=== PATIENT | male | born 1945 | race Caucasian/White ===

== ENCOUNTER 2016-12-27 17:38 | Emergency (ER) | payer OTHER ==
[~2016-12-27] VITALS: Ht 188 cm; Wt 70.3 kg
[~2016-12-27 17:38] MED LIST: /VERA40TA OR; AMBI10TA OR; AMBI5TAB OR; DOXE10CA2 OR; DOXE50CA2 PO; MAPROTILINE; VALI10TA OR; VICO5TAB PO; ZETI10TA OR; ZOCO40TA OR; [UNRECOGNIZED DRUG - OTHER]
[2016-12-27] MEDS ORDERED: INCR1INH INH (18:01)
[2016-12-27] MEDS ORDERED: VERA100C PO (18:01)
[2016-12-27 20:02] LABS: BASO % 0.3 % (0.0-1.0); EOS # 0.2 K/mm3 (0.0-0.50); EOS % 2.5 % (0.0-3.0); LARGE UNSTAINED CELL # 0.1 K/mm3 (0.0-0.4); LARGE UNSTAINED CELL % 1.9 % (0.0-4.0); LYMPH # 2.1 K/mm3 (1.5-4.5); LYMPH % 26.6 % (24.0-44.0); MEAN CORPUSCULAR HGB CONC 34.7 g/dl (32.0-36.5); MEAN CORPUSCULAR VOLUME 92.3 fl (80.0-96.0); MONO # 0.4 K/mm3 (0.0-0.8); NEUTROPHILS # 4.5 K/mm3 (1.8-7.7); NEUTROPHILS % 62.6 % (36.0-66.0); PLATELET COUNT, AUTOMATED 240 k/mm3 (150-450); RED CELL DISTRIBUTION WIDTH 12.9 % (11.5-14.5); WHITE BLOOD COUNT 7.2 K/mm3 (4.0-10.0)
[2016-12-27 20:09] LABS: ANION GAP 5 MEQ/L (8-16); BLOOD UREA NITROGEN 26 MG/DL (7-18); CALCIUM LEVEL 8.2 MG/DL (8.8-10.2); CARBON DIOXIDE LEVEL 27 MEQ/L (21-32); CHLORIDE LEVEL 103 MEQ/L (98-107); CREATININE FOR GFR 1.22 MG/DL (0.70-1.30); GLOMERULAR FILTRATION RATE > 60.0 (>42); GLUCOSE, FASTING 108 MG/DL (83-110); POTASSIUM SERUM 4.7 MEQ/L (3.5-5.1); SODIUM LEVEL 135 MEQ/L (136-145)
[2016-12-27 20:12] LABS: INR 1.11
[2016-12-27] MEDS: MORPHINE 4 MG/ML 1ML SYRINGE IV PRN ×2 (20:38→21:20)
[2016-12-27] MEDS ORDERED: ONDANSETRON 4MG/2ML VIAL (J2405) IV ONE (20:45)
[2016-12-27] MEDS ORDERED: ISOVUE-370 76% 100ML VIAL (Q9967) As Ordered ONE (20:45)
[2016-12-27 22:41] VITALS: BP 166/80
--- NOTE | 2016-12-28 14:45 | REP ---
Clinical: Abdominal pain rule out aortic aneurysm. Technique: Axial contrast enhanced images from the lung bases to the pubic symphysis using angiographic technique with 100 ml Isovue 370 intravenous contrast material. Coronal and sagittal re-formations obtained. Findings: Satisfactory enhancement of the aorta and branch vessels noted. Advanced atherosclerotic changes including partially calcified atheromatous plaques are identified involving the aorta. There is no evidence for acute aneurysm or dissection. Satisfactory enhancement of the celiac access, superior mesenteric artery, bilateral renal arteries and bilateral common/external iliac arteries appreciated. There appears to be an old nonenhancing aorto-biiliac stent graft. Liver, spleen, pancreas, gallbladder, bilateral adrenal glands and kidneys are relatively normal. The enteric system is without obstruction or acute inflammatory process. The bladder is unremarkable. The prostate gland is enlarged measuring greater than 5.2 cm maximal diameter. No ascites. No free air. No intraperitoneal or retroperitoneal adenopathy. Musculoskeletal structures demonstrate degenerative changes without focal osseous abnormality. Impression: 1. Advanced atherosclerotic changes. No evidence for abdominal aortic aneurysm or dissection. Prior aortic-biiliac stent graft without enhancement or obvious flow. 2. Enlarged prostate gland. 3. Chronic age-related changes. 4. No acute intra-abdominal or pelvic pathology appreciated. Signed by Nabeel Kenny MD 12/28/2016 02:36 P
== END 2016-12-27 22:56 | disposition home or self-care (01) ==
LOC: M ED 18:57
DX: G89.29 Other chronic pain (principal); M54.5 Low back pain; Z79.899 Other long term (current) drug therapy
CPT/HCPCS: 36415; 74177; 80048; 85025; 85610; 85730; 96374; 96375; 99283; J2405; Q9967

== ENCOUNTER → 2017-01-10 | Outpatient (REF) | payer OTHER ==
[~2017-01-10] MED LIST changes: +INCR1INH INH; +VERA100C PO
[2017-01-11 11:45] LABS: MEAN CORPUSCULAR HEMOGLOBIN 30.8 pg (27.0-33.0); MEAN CORPUSCULAR HGB CONC 32.8 g/dl (32.0-36.5); MEAN CORPUSCULAR VOLUME 93.9 fl (80.0-96.0); WHITE BLOOD COUNT 9.4 K/mm3 (4.0-10.0)
[2017-01-11 12:08] LABS: ALBUMIN 3.9 GM/DL (3.2-5.2); ALBUMIN/GLOBULIN RATIO 0.91 (1.00-1.93); ALKALINE PHOSPHATASE 113 U/L (45-117); ALT/SGPT 16 U/L (12-78); ANION GAP 5 MEQ/L (8-16); AST/SGOT 15 U/L (15-37); BILIRUBIN,TOTAL 0.3 MG/DL (0.2-1.0); BLOOD UREA NITROGEN 23 MG/DL (7-18); CALCIUM LEVEL 8.5 MG/DL (8.8-10.2); CARBON DIOXIDE LEVEL 29 MEQ/L (21-32); CHLORIDE LEVEL 103 MEQ/L (98-107); CHOLESTEROL LEVEL 114 MG/DL (<200); CREATININE FOR GFR 1.09 MG/DL (0.70-1.30); GLOMERULAR FILTRATION RATE > 60.0 (>42); GLUCOSE, FASTING 97 MG/DL (83-110); POTASSIUM SERUM 4.8 MEQ/L (3.5-5.1); SODIUM LEVEL 137 MEQ/L (136-145); TOTAL PROTEIN 8.2 GM/DL (6.4-8.2); TRIGLYCERIDES LEVEL 165 MG/DL (<150)
== END ==
LOC: M SFHCCLAY 15:30
PROVIDERS: ATTEND Nurse Practitioner
DX: Z12.5 Encounter for screening for malignant neoplasm of prostate (principal); R63.4 Abnormal weight loss; I10 Essential (primary) hypertension; E78.5 Hyperlipidemia, unspecified; Z79.899 Other long term (current) drug therapy; Z79.891 Long term (current) use of opiate analgesic
CPT/HCPCS: 80053; 80061; 82306; 85027; 85652; G0103; G0463

== ENCOUNTER → 2017-01-19 | Outpatient (CLI) | payer OTHER ==
[2017-01-19 12:40] LABS: FREE T4 1.03 NG/DL (0.76-1.46); TOTAL IRON BINDING CAPACITY 322 UG/DL (250-450); TOTAL PROTEIN 7.6 GM/DL (6.4-8.2)
[2017-01-19 12:51] LABS: VITAMIN B12 LEVEL 389 PG/ML
[2017-01-19 12:52] LABS: FOLATE 20.3 NG/ML
[2017-01-20 13:52] LABS: ALBUMIN 3.91 GM/DL (3.29-5.55); ALBUMIN % 51.5 % (55.8-66.1)
== END ==
LOC: M LAB 11:29
PROVIDERS: ATTEND Nurse Practitioner
DX: D64.9 Anemia, unspecified (principal)

== ENCOUNTER 2017-02-07 15:47 | Emergency (ER) | payer MEDICARE, OTHER ==
[~2017-02-07] VITALS: Ht 185.4 cm; Wt 63.5 kg
[2017-02-07] MEDS ORDERED: DOXE75CA2 (16:25)
[2017-02-07] MEDS ORDERED: METO-209 (16:25)
[2017-02-07] MEDS ORDERED: ANORO (16:25)
[2017-02-07] MEDS ORDERED: GABA-282 (16:25)
[2017-02-07] MEDS ORDERED: HYDR-3713 PO (16:25)
[2017-02-07] MEDS ORDERED: METO-207 (16:25)
[2017-02-07] MEDS ORDERED: VERA1TAB11 (16:25)
[2017-02-07] MEDS ORDERED: CYCL10TA (16:25)
[2017-02-07 18:31] LABS: MEAN CORPUSCULAR HEMOGLOBIN 31.3 pg (27.0-33.0); MEAN CORPUSCULAR HGB CONC 33.5 g/dl (32.0-36.5); MEAN CORPUSCULAR VOLUME 93.2 fl (80.0-96.0); RED CELL DISTRIBUTION WIDTH 13.5 % (11.5-14.5); WHITE BLOOD COUNT 7.9 K/mm3 (4.0-10.0)
[2017-02-07 19:00] LABS: ALBUMIN 3.8 GM/DL (3.2-5.2); ALBUMIN/GLOBULIN RATIO 0.93 (1.00-1.93); ALKALINE PHOSPHATASE 90 U/L (45-117); ALT/SGPT 22 U/L (12-78); ANION GAP 6 MEQ/L (8-16); AST/SGOT 21 U/L (15-37); BILIRUBIN,DIRECT 0.1 MG/DL (0.0-0.2); BILIRUBIN,TOTAL 0.4 MG/DL (0.2-1.0); BLOOD UREA NITROGEN 21 MG/DL (7-18); CALCIUM LEVEL 8.6 MG/DL (8.8-10.2); CARBON DIOXIDE LEVEL 27 MEQ/L (21-32); CHLORIDE LEVEL 105 MEQ/L (98-107); CREATININE FOR GFR 1.25 MG/DL (0.70-1.30); GLOMERULAR FILTRATION RATE > 60.0 (>42); GLUCOSE, FASTING 83 MG/DL (83-110); SODIUM LEVEL 138 MEQ/L (136-145); TOTAL PROTEIN 7.9 GM/DL (6.4-8.2)
[2017-02-07 20:10] LABS: BASO % 0.3 % (0.0-1.0); EOS # 0.2 K/mm3 (0.0-0.50); EOS % 3.1 % (0.0-3.0); LARGE UNSTAINED CELL # 0.1 K/mm3 (0.0-0.4); LARGE UNSTAINED CELL % 1.2 % (0.0-4.0); LYMPH # 2.3 K/mm3 (1.5-4.5); LYMPH % 32.5 % (24.0-44.0); MEAN CORPUSCULAR HEMOGLOBIN 31.3 pg (27.0-33.0); MEAN CORPUSCULAR HGB CONC 33.7 g/dl (32.0-36.5); MONO # 0.4 K/mm3 (0.0-0.8); MONO % 6.4 % (0.0-5.0); NEUTROPHILS # 3.9 K/mm3 (1.8-7.7); NEUTROPHILS % 56.6 % (36.0-66.0); PLATELET COUNT, AUTOMATED 259 k/mm3 (150-450); RED CELL DISTRIBUTION WIDTH 13.6 % (11.5-14.5); WHITE BLOOD COUNT 6.9 K/mm3 (4.0-10.0)
[2017-02-07 20:13] LABS: INR 0.94
[2017-02-07 20:46] LABS: ALBUMIN 3.8 GM/DL (3.2-5.2); ALKALINE PHOSPHATASE 100 U/L (45-117); ALT/SGPT 20 U/L (12-78); ANION GAP 7 MEQ/L (8-16); AST/SGOT 22 U/L (15-37); BILIRUBIN,DIRECT < 0.1 MG/DL (0.0-0.2); BILIRUBIN,TOTAL 0.4 MG/DL (0.2-1.0); BLOOD UREA NITROGEN 20 MG/DL (7-18); CALCIUM LEVEL 8.9 MG/DL (8.8-10.2); CARBON DIOXIDE LEVEL 27 MEQ/L (21-32); CHLORIDE LEVEL 105 MEQ/L (98-107); CREATININE FOR GFR 1.34 MG/DL (0.70-1.30); GLOMERULAR FILTRATION RATE 56.1 (>42); GLUCOSE, FASTING 139 MG/DL (83-110); SODIUM LEVEL 139 MEQ/L (136-145)
[2017-02-07] MEDS ORDERED: NS 1,000 ML IV ONE (21:00)
[2017-02-07 22:51] LABS: METHADONE URINE NEGATIVE (NEGATIVE)
[2017-02-07 23:18] VITALS: BP 197/93
--- NOTE | 2017-02-08 08:28 | ECGEPIP ---
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 RBBB Electronically Signed On 02-08-2017 8:27:53 EDT by Richard Pichardo
== END 2017-02-07 23:29 | disposition home or self-care (01) ==
LOC: M ED 17:48
DX: F11.20 Opioid dependence, uncomplicated (principal); M54.9 Dorsalgia, unspecified; G89.29 Other chronic pain; D64.9 Anemia, unspecified
CPT/HCPCS: 80048; 80076; 80306; 82550; 84443; 85025; 85027; 85610; 85730; 93005; 93041; 94760; 99285; G0480

== ENCOUNTER 2017-02-18 01:18 | Inpatient (IN) | payer OTHER ==
[~2017-02-18] VITALS: Ht 185.4 cm; Wt 64.3 kg
[~2017-02-18 01:18] MED LIST changes: +ANORO; +CYCL10TA PO; +DOXE75CA2 PO; +GABA-282 PO; +HYDR-3713 PO; +METO-207; +METO-209 PO; +VERA1TAB11 PO
[2017-02-18] MEDS ORDERED: dexameTHASONE 20 MG/5 ML VIAL (J1100) IV ONE (02:45)
[2017-02-18 03:06] LABS: BASO % 0.2 % (0.0-1.0); EOS # 0.1 K/mm3 (0.0-0.50); EOS % 1.6 % (0.0-3.0); LARGE UNSTAINED CELL # 0.2 K/mm3 (0.0-0.4); LARGE UNSTAINED CELL % 2.1 % (0.0-4.0); LYMPH # 2.9 K/mm3 (1.5-4.5); MEAN CORPUSCULAR HEMOGLOBIN 31.4 pg (27.0-33.0); MEAN CORPUSCULAR HGB CONC 34.1 g/dl (32.0-36.5); MEAN CORPUSCULAR VOLUME 92.1 fl (80.0-96.0); MONO # 0.8 K/mm3 (0.0-0.8); MONO % 9.1 % (0.0-5.0); NEUTROPHILS # 4.7 K/mm3 (1.8-7.7); NEUTROPHILS % 55.1 % (36.0-66.0); PLATELET COUNT, AUTOMATED 241 k/mm3 (150-450); RED CELL DISTRIBUTION WIDTH 13.5 % (11.5-14.5); WHITE BLOOD COUNT 8.4 K/mm3 (4.0-10.0)
[2017-02-18] MEDS ORDERED: MORPHINE 4 MG/ML 1ML SYRINGE IV ONE (03:15)
[2017-02-18] MEDS ORDERED: IPRATROPIUM 0.5MG/ALBUTEROL 2.5MG INH SOL UD 3ML (DUONEB)(J7620) NEB PRN (03:30)
[2017-02-18] MEDS ORDERED: dexameTHASONE 20 MG/5 ML VIAL (J1100) IV SCH (03:30)
[2017-02-18] MEDS ORDERED: NS 1,000 ML IV SCH (03:30)
[2017-02-18] MEDS ORDERED: ISOVUE-370 76% 100ML VIAL (Q9967) As Ordered ONE (03:33)
[2017-02-18 03:35] LABS: ANION GAP 4 MEQ/L (8-16); BLOOD UREA NITROGEN 24 MG/DL (7-18); CALCIUM LEVEL 8.6 MG/DL (8.8-10.2); CARBON DIOXIDE LEVEL 32 MEQ/L (21-32); CHLORIDE LEVEL 99 MEQ/L (98-107); CREATININE FOR GFR 1.08 MG/DL (0.70-1.30); GLOMERULAR FILTRATION RATE > 60.0 (>42); GLUCOSE, FASTING 98 MG/DL (83-110); POTASSIUM SERUM 3.7 MEQ/L (3.5-5.1); SODIUM LEVEL 135 MEQ/L (136-145)
[2017-02-18] MEDS ORDERED: ALBU83IN INH (03:55)
[2017-02-18] MEDS ORDERED: ZOCO40TA PO (03:55)
[2017-02-18] MEDS ORDERED: ANOR1AER INH (03:55)
[2017-02-18] MEDS ORDERED: hydrALAZINE INJ 20 MG/ML VIAL IV SCH (04:00)
[2017-02-18 04:55] VITALS: BP 195/95
[2017-02-18 06:47] VITALS: BP 173/87
[2017-02-18 07:45] VITALS: BP 175/81
[2017-02-18] MEDS: TAMSULOSIN 0.4 MG CAP PO SCH ×2 (09:30→21:03)
[2017-02-18] MEDS: SENOKOT S TAB PO SCH (09:30)
[2017-02-18] MEDS: GABAPENTIN 300 MG CAP PO SCH ×3 (09:30→21:04)
[2017-02-18] MEDS: CYCLOBENZAPRINE 10 MG TAB PO SCH ×3 (09:30→21:04)
[2017-02-18] MEDS: HEPARIN SOD (PORCINE) 5000 UNITS/ML VIAL SQ SCH ×2 (09:32→21:02)
[2017-02-18] MEDS: hydrALAZINE INJ 20 MG/ML VIAL IV SCH ×3 (10:00→23:14)
[2017-02-18 12:00] VITALS: BP 168/72
[2017-02-18] MEDS: dexameTHASONE 4 MG/ML 1ML VIAL (J1100) IV SCH ×2 (13:52→21:02)
[2017-02-18 15:23] VITALS: BP 160/78
[2017-02-18 15:49] LABS: CARCINOEMBRYONIC ANTIGEN 1.8 NG/ML (<2.5)
[2017-02-18] MEDS: LORazepam 0.5 MG TAB PO PRN ×2 (17:00→23:12)
[2017-02-18] MEDS: FINASTERIDE 5 MG TAB PO SCH (18:51)
[2017-02-18 20:00] VITALS: BP 136/78
[2017-02-18] MEDS: METOPROLOL SUCC (TopROL XL) 100MG *XL* TAB PO SCH (21:03)
[2017-02-18] MEDS: VERAPAMIL 180 MG SR TAB PO SCH (21:03)
[2017-02-18] MEDS: DOXEPIN 25 MG CAP PO SCH (21:03)
[2017-02-18] MEDS: SIMVASTATIN 40 MG TAB PO SCH (21:04)
[2017-02-18] MEDS: levETIRAcetam 250MG TABLET (KEPPRA) PO SCH (21:04)
[2017-02-19] VITALS (8 sets, daily range): BP systolic 133–154; BP diastolic 63–78
[2017-02-19] MEDS: NORCO, ANEXSIA 5/325MG TABLET (HYDROcodone/ACETAMINOPHEN) PO PRN ×3 (00:23→20:52)
[2017-02-19] MEDS: hydrALAZINE INJ 20 MG/ML VIAL IV SCH ×2 (04:00→09:57)
[2017-02-19] MEDS: dexameTHASONE 4 MG/ML 1ML VIAL (J1100) IV SCH ×4 (04:02→20:45)
[2017-02-19 05:30] LABS: MEAN CORPUSCULAR HEMOGLOBIN 30.8 pg (27.0-33.0); MEAN CORPUSCULAR HGB CONC 33.3 g/dl (32.0-36.5); MEAN CORPUSCULAR VOLUME 92.3 fl (80.0-96.0); RED CELL DISTRIBUTION WIDTH 13.5 % (11.5-14.5); WHITE BLOOD COUNT 12.4 K/mm3 (4.0-10.0)
[2017-02-19 05:43] LABS: ANION GAP 7 MEQ/L (8-16); BLOOD UREA NITROGEN 27 MG/DL (7-18); CALCIUM LEVEL 9.2 MG/DL (8.8-10.2); CARBON DIOXIDE LEVEL 29 MEQ/L (21-32); CHLORIDE LEVEL 101 MEQ/L (98-107); CREATININE FOR GFR 1.03 MG/DL (0.70-1.30); GLOMERULAR FILTRATION RATE > 60.0 (>42); GLUCOSE, FASTING 136 MG/DL (83-110); MAGNESIUM LEVEL 2.2 MG/DL (1.8-2.4); POTASSIUM SERUM 4.2 MEQ/L (3.5-5.1); SODIUM LEVEL 137 MEQ/L (136-145)
[2017-02-19] MEDS: LORazepam 0.5 MG TAB PO PRN ×3 (07:14→20:51)
[2017-02-19] MEDS: FINASTERIDE 5 MG TAB PO SCH (09:56)
[2017-02-19] MEDS: levETIRAcetam 250MG TABLET (KEPPRA) PO SCH ×2 (09:56→20:45)
[2017-02-19] MEDS: CYCLOBENZAPRINE 10 MG TAB PO SCH ×3 (09:56→20:44)
[2017-02-19] MEDS: HEPARIN SOD (PORCINE) 5000 UNITS/ML VIAL SQ SCH ×2 (09:57→20:45)
[2017-02-19] MEDS: GABAPENTIN 300 MG CAP PO SCH ×3 (09:57→20:44)
[2017-02-19] MEDS: SENOKOT S TAB PO SCH (09:57)
[2017-02-19] MEDS: TAMSULOSIN 0.4 MG CAP PO SCH ×2 (09:57→20:45)
[2017-02-19] MEDS ORDERED: ISOVUE-370 76% 100ML VIAL (Q9967) As Ordered ONE (15:12)
[2017-02-19] MEDS: VERAPAMIL 180 MG SR TAB PO SCH (20:44)
[2017-02-19] MEDS: DOXEPIN 25 MG CAP PO SCH (20:44)
[2017-02-19] MEDS: METOPROLOL SUCC (TopROL XL) 100MG *XL* TAB PO SCH (20:45)
[2017-02-19] MEDS: SIMVASTATIN 40 MG TAB PO SCH (20:45)
[2017-02-20 02:00] VITALS: BP 141/70
[2017-02-20] MEDS: dexameTHASONE 4 MG/ML 1ML VIAL (J1100) IV SCH ×2 (02:25→08:13)
[2017-02-20 06:00] VITALS: BP 145/69
[2017-02-20 06:02] LABS: MEAN CORPUSCULAR HEMOGLOBIN 31.4 pg (27.0-33.0); MEAN CORPUSCULAR VOLUME 92.3 fl (80.0-96.0); RED CELL DISTRIBUTION WIDTH 13.7 % (11.5-14.5); WHITE BLOOD COUNT 15.8 K/mm3 (4.0-10.0)
[2017-02-20 06:32] LABS: ANION GAP 7 MEQ/L (8-16); BLOOD UREA NITROGEN 28 MG/DL (7-18); CALCIUM LEVEL 8.4 MG/DL (8.8-10.2); CARBON DIOXIDE LEVEL 27 MEQ/L (21-32); CHLORIDE LEVEL 103 MEQ/L (98-107); GLOMERULAR FILTRATION RATE > 60.0 (>42); GLUCOSE, FASTING 129 MG/DL (83-110); MAGNESIUM LEVEL 2.1 MG/DL (1.8-2.4); POTASSIUM SERUM 4.2 MEQ/L (3.5-5.1); SODIUM LEVEL 137 MEQ/L (136-145)
[2017-02-20] MEDS: LORazepam 0.5 MG TAB PO PRN ×2 (06:40→12:59)
[2017-02-20] MEDS: NORCO, ANEXSIA 5/325MG TABLET (HYDROcodone/ACETAMINOPHEN) PO PRN ×2 (06:41→13:00)
[2017-02-20] MEDS: SENOKOT S TAB PO SCH (08:12)
[2017-02-20] MEDS: levETIRAcetam 250MG TABLET (KEPPRA) PO SCH (08:12)
[2017-02-20] MEDS: FINASTERIDE 5 MG TAB PO SCH (08:12)
[2017-02-20] MEDS: HEPARIN SOD (PORCINE) 5000 UNITS/ML VIAL SQ SCH (08:13)
[2017-02-20] MEDS: CYCLOBENZAPRINE 10 MG TAB PO SCH (08:13)
[2017-02-20] MEDS: TAMSULOSIN 0.4 MG CAP PO SCH (08:13)
[2017-02-20] MEDS: GABAPENTIN 300 MG CAP PO SCH (08:13)
[2017-02-20 10:00] VITALS: BP 141/66
[2017-02-20] MEDS ORDERED: ATIV1TAB10 PO (12:25)
[2017-02-20] MEDS ORDERED: DEXA4TA PO (12:25)
[2017-02-20] MEDS ORDERED: FINA5TAB2 PO (12:25)
[2017-02-20] MEDS ORDERED: KEPP250T5 PO (12:25)
[2017-02-20] MEDS ORDERED: NORCOTAB PO (12:25)
[2017-02-20] MEDS ORDERED: FLOM5CAP PO (12:25)
== END 2017-02-20 13:12 | disposition home or self-care (01) | DRG 54 ==
LOC: M ED 03:04 → M ED INP 03:20 → M PCU 05:06 → M MSPAV 02-19 12:14
PROVIDERS: ADMIT Hospitalist; ATTEND Family Medicine
DX: C79.31 Secondary malignant neoplasm of brain (principal); G93.6 Cerebral edema; G81.94 Hemiplegia, unspecified affecting left nondominant side; R91.8 Other nonspecific abnormal finding of lung field; F11.10 Opioid abuse, uncomplicated; Z66 Do not resuscitate; I16.0 Hypertensive urgency; R56.9 Unspecified convulsions; R59.0 Localized enlarged lymph nodes; K59.09 Other constipation; M47.817 Spondylosis without myelopathy or radiculopathy, lumbosacral region; C80.1 Malignant (primary) neoplasm, unspecified; F17.210 Nicotine dependence, cigarettes, uncomplicated; E78.5 Hyperlipidemia, unspecified; G62.9 Polyneuropathy, unspecified; N40.1 Benign prostatic hyperplasia with lower urinary tract symptoms; I10 Essential (primary) hypertension; J43.9 Emphysema, unspecified; Z79.899 Other long term (current) drug therapy

== ENCOUNTER 2017-03-16 17:18 | Inpatient (IN) | payer OTHER, MEDICARE ==
[~2017-03-16] VITALS: Ht 188 cm; Wt 62.0 kg
[~2017-03-16 17:18] MED LIST changes: +ALBU83IN INH; +ANOR1AER INH; +ATIV1TAB10 PO; +DEXA4TA PO; +FINA5TAB2 PO; +FLOM5CAP PO; +KEPP250T5 PO; -METO-207; -METO-209 PO; +METO1TAB33 PO; +METO1TAB7; +NORCOTAB PO; +ZOCO40TA PO
[2017-03-16] MEDS ORDERED: MORPHINE 4 MG/ML 1ML SYRINGE IV ONE (19:15)
[2017-03-16] MEDS ORDERED: AMBI10TA PO (20:04)
[2017-03-16] MEDS ORDERED: NORC1TAB4 PO (20:05)
[2017-03-16] MEDS ORDERED: BISACODYL 10 MG SUPP PR PRN (20:45)
[2017-03-16] MEDS ORDERED: LORazepam 2 MG/ML VIAL (J2060) IV PRN (20:45)
[2017-03-16] MEDS ORDERED: MORPHINE 10MG/0.5ML ORAL CONCENTRATE SOLUTION U/D SL PRN (20:45)
[2017-03-16] MEDS ORDERED: ONDANSETRON 4MG/2ML VIAL (J2405) IV PRN (20:45)
[2017-03-16] MEDS ORDERED: IPRATROPIUM 0.5MG/ALBUTEROL 2.5MG INH SOL UD 3ML (DUONEB)(J7620) NEB PRN (21:00)
[2017-03-16] MEDS ORDERED: ALBU17IN INH (21:25)
[2017-03-16] MEDS ORDERED: NYST50SS SS (21:25)
[2017-03-16] MEDS ORDERED: CLOT10TR MT (21:25)
[2017-03-16] MEDS ORDERED: DEXA4TA PO (21:25)
[2017-03-16] MEDS ORDERED: KEPP1TAB PO (21:25)
[2017-03-16] MEDS ORDERED: LORA1TAB12 PO (21:25)
--- NOTE | 2017-03-16 21:57 | HPE ---
DATE OF ADMISSION: 03/16/2017 PRIMARY CARE PHYSICIAN: Dr. Mayes SHARED SERVICES MANAGER: Dr. Briones CHIEF COMPLAINT: Pain, weakness, dyspnea. HISTORY OF PRESENT ILLNESS: Mr. Lai is a 71-year-old with multiple past medical history, including small lung nodules, right upper lobe, as well as brain metastasis of uncertain primary source who was brought to the emergency room (ER ) due to experiencing 2 days of shortness of breath, pain all over his body, especially abdomen, as well as weakness and loss of appetite. According to the patient's daughter, who is also his healthcare proxy. Patient was at baseline up to 2 days ago, when patient started to have decreased food intake as well as becoming more tired and fatigued with dyspnea. Today patient became worse. It was also noted that patient became more dizzy and lightheaded. According to the patient's daughter, he had episodes of vomiting yesterday and today. Patient also felt cold as well as chills and night sweats. According to the daughter, patient only drank a small amount of water. Patient also urinating very often (every hour), which daughter requesting patient to have Bajwa. Patient expressed that before coming to the hospital he had pain 8 or 9 out of 10; however, after receiving 4 mg of morphine, patient's pain decreased to 10/10. Patient expressed that the pain is all over his body, especially his abdomen. ALLERGIES: No known allergies. PAST MEDICAL HISTORY: 1. Brain metastasis of uncertain primary source. 2. Small lung nodules, right upper lobe. 3. Mediastinal adenopathy. 4. Seizure. 5. Left hemiparesis. 6. Hypertensive urgency. 7. Tobacco abuse. 8. History of chronic back pain due to lumbosacral spondylosis. 9. Chronic constipation. 10. Chronic obstructive pulmonary disease (COPD). 11. Hyperlipidemia. 12. Peripheral neuropathy. 13. Straining with urination. PAST SURGICAL HISTORY: 1. Aortic graft for abdominal aortic aneurysm. 2. Inguinal hernia repair. HOME MEDICATIONS: - [place] 5/325 one tablet by mouth as needed pain - albuterol sulfate 2.5 mg INH three times a day as needed shortness of breath - Anoro Ellipta one inhaler daily - cyclobenzaprine 10 mg by mouth three times a day - doxepin 75 mg by mouth at bedtime - gabapentin 300 mg by mouth three times a day - metoprolol succinate 100 mg by mouth at bedtime - verapamil 180 mg by mouth at bedtime - Ambien 10 mg by mouth at bedtime as needed sleep SOCIAL HISTORY: Patient lives with his . Patient's son has moved in to live with them for the past month to help him. Patient's daughter also visiting him. Patient has one dog. Patient is not drinking alcohol at this time; however, patient used to drink alcohol a long time ago. Patient smokes about one and one-half to two packs a day since age 19. Patient still smokes. Patient denies illicit drug use. Patient has not traveled outside of the [place]. FAMILY HISTORY: Patient has one daughter and three sons who are healthy for their age. Patient has two sisters who are healthy. Patient's mother has different medical issues; however, no information is provided at this time. Patient's father due to ruptured aorta at age 68. REVIEW OF SYSTEMS: GENERAL: Patient denied fever; however, patient has chills and night sweats. Patient has lost about 7 pounds for the past week. HEENT: Patient also expressed that he has some acute vision changes that become more blurry; however, patient denies acute hearing changes. Patient denies problem with chewing food or sinusitis. Patient has dizziness, and meclizine seems to help. NECK: Patient denies lumps, bumps; however, patient expressed that moving the neck makes him to be out of breath. HEART: Patient denies chest pain, palpitations, racing or skipping heartbeat. LUNGS: Patient expressed that he has been having shortness of breath that has increased for the past 2 days. Patient denies wheezing. ABDOMEN: Patient has abdominal pain; however, his last bowel movement was 2 days ago, which was soft. Patient denies hematochezia, hemoptysis. Patient has nausea and has vomiting; however, no blood was seen in the stool or in the vomit. NEUROLOGIC: Patient denies history of transient ischemic attack (TIA), severe seizure-type activities. PHYSICAL EXAMINATION: VITAL SIGNS: Temperature 98.3, pulse 112, respiratory rate 24, blood pressure 130/80, pulse oximetry 90 on 4 liters nasal cannula. HEENT: Normocephalic, atraumatic. Pupils are reactive to light; however, right eye has ptosis. Oral mucosa is moist. GENERAL APPEARANCE: cachexia. NECK: Soft, supple. No thyromegaly. HEART: Tachycardia. LUNGS: Patient has decreased breath sounds at the base of the lungs. Patient also has rhonchi and exhale wheezing. ABDOMEN: Soft. Tender to palpation; however, patient has positive bowel sounds in all quadrants. EXTREMITIES: Patient has cyanosis on his feet bilaterally. The range of motion cannot be examined due to patient being out of breath and not being able to move his extremities; however, sensation has decreased on his lower extremities. NEUROLOGIC: Cranial nerves cannot be obtained due to patient being sleepy. LABORATORY DATA: No lab was performed. IMAGING: No imaging was performed. ASSESSMENT AND PLAN: At this time, patient and the patient's family decided to be comfort measures only, and comfort measures only status was explained in detail to the patient and patient's family and patient's health proxy, and they all agreed. A medical order for life-sustaining treatment (MOLST) form was signed, and patient's status was changed comfort measures only. Also we have put a Bajwa, as patient's healthcare proxy requested. Also we have put a consult for hospice for tomorrow. At this time we will continue patient with comfort measures only protocol. patient has sever protein calorie malnutrition in the setting of cancer with BMI 17 and cachexia. My preceptor for this patient encounter was Dr. Erna Dillon. The preceptor was physically present in the building during the encounter and was fully available as needed. All aspects of the patient interview, examination, medical decision making process, and medical care plan development were reviewed and approved by the preceptor. The preceptor is aware and concurs with the plan as stated in the body of this note and will attest to such by his/her co-signature. I have both independently examined this patient as well as reviewed the H&P. I have discussed in detail with the resident the findings and plan of treatment as documented in the residents note. I will continue to follow the patient and offer further guidance to the patients care as necessary during this hospital stay. Erna SHARP
[2017-03-16 23:03] VITALS: BP 108/62
[2017-03-16] MEDS: MORPHINE 2 MG/ML 1ML SYRINGE IV PRN (23:59)
[2017-03-17] MEDS ORDERED: MECLIZINE 25 MG TABLET PO PRN (00:15)
[2017-03-17] MEDS ORDERED: ACETAMINOPHEN 500 MG TAB PO PRN (00:15)
[2017-03-17] MEDS: MORPHINE 2 MG/ML 1ML SYRINGE IV PRN ×3 (01:58→09:56)
[2017-03-17] MEDS: IPRATROPIUM 0.5MG/ALBUTEROL 2.5MG INH SOL UD 3ML (DUONEB)(J7620) NEB SCH ×2 (07:53→14:00)
--- NOTE | 2017-03-17 12:02 | IPNPDOC ---
Subjective Date Seen The patient was seen on 03/17/17. 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 Events since last encounter Pt is agitated, his and dgt are at bedside. They are under the impression that they stayed here overnight to be able to get home with Hospice sooner than if they were to do the consult from the outpt setting. The pt was having difficulty controlling his pain and he was having labored breathing at home. He leaves his pain meds bedside and takes them when he feels like regardless of timing. General: Reports: ROS Unobtainable Objective Physical Examination General Exam: Positive: Alert, Mild Distress (pt is agitated, repeatedly tells me that he is leaving today, he wants vicodin), Negative: Cooperative Chest Exam: Positive: Clear to auscultation, Diminished Heart Exam: Positive: Rate Normal Assessment /Plan Problems (1) Comfort measures only status Status: Acute Discussed With: Nurse, Patient, Family with Pt Consent Problem Specific Plan: Monitor Clinically Problem Text: Pt has IV/SL morphine ordered, requested nursing to use the SL dosing first for pain control and IV for breakthrough pain only. He can continue Ativan for anxiety. Has a consult for Hospice, nursing/PFS to call for a timeline for when they will be able to come in. once the pt's pain is controlled on po he can go home and Hospice can come see him at home. (2) Brain metastases Status: Chronic (3) Opioid dependence Status: Chronic Plan/VTE VTE Prophylaxis Ordered?: No Plan/Urinary Catheter Reason for insertion/continuin: Other-document below VS, I&O, 24H, Fishbone Vital Signs/I&O Vital Signs Date Time Temp Pulse Resp B/P (MAP) Pulse Ox O2 Delivery O2 Flow Rate FiO2 03/17/17 10:08 14 03/17/17 09:20 Nasal Cannula 6.0 03/16/17 23:18 85 03/16/17 23:03 108/62 (77) 03/16/17 20:03 96 03/16/17 17:42 98.3 I&O- Last 24 Hours up to 6 AM 03/17/17 05:59 Intake Total 0 ml Output Total 650 ml Balance -650 ml INDIO GAFFNEY PA-C Mar 17, 2017 12:02
[2017-03-17] MEDS ORDERED: LORazepam 1 MG TAB PO PRN (12:15)
[2017-03-17] MEDS ORDERED: MORP1SOL PO (13:23)
[2017-03-17] MEDS ORDERED: MORP1SOL SL (13:27)
[2017-03-17] MEDS ORDERED: NORCO, ANEXSIA 5/325MG TABLET (HYDROcodone/ACETAMINOPHEN) PO PRN (14:45)
--- NOTE | 2017-03-18 17:05 | DSES ---
DATE OF ADMISSION: 03/16/2017 DATE OF DISCHARGE: 03/17/2017 ATTENDING PHYSICIAN: Dr. Jamee Hagen PRIMARY CARE PHYSICIAN: Dr. Moose Mayes PRINCIPAL DIAGNOSIS: Intractable pain due to cancer with unknown primary source and brain metastases. SECONDARY DIAGNOSES: 1. Seizures. 2. Left hemiparesis. 3. Hypertension. 4. Chronic back pain due to lumbosacral spondylosis. 5. Tobacco abuse. 6. Chronic constipation. 7. Chronic obstructive pulmonary disease. 8. Hyperlipidemia. 9. Peripheral neuropathy. 10.Severe Protein calorie malnutrition due to cancer CONSULTANTS: Hospice. INVASIVE PROCEDURES: None. SUMMARY STATEMENT: This is a 71-year-old man with a history of brain metastases of uncertain primary source who presented after an episode of turning blue at home. The patient's family felt that he was having significant difficulty breathing and so brought him to the emergency department. He states pain is chronically 8 or 9 out of 10 and so he takes a significant amount of Vicodin at home for this. It was thought that this episode was likely due to respiratory depression from opioid use. The patient was admitted to the hospital, and his family was under the impression that he would be going home within 24 hours with hospice. After we explained that this would likely be a more lengthy process, he asked to be discharged home to have hospice initiated as an outpatient. He was discharged with medications for pain and anxiety, as well as on oxygen, given his low oxygen saturation here in the hospital. DISCHARGE PLANS: 1. Discharge Medications: - [place] 5/325 mg one tablet by mouth every 4 hours as needed for pain. - Albuterol sulfate 2.5 mg by inhalation three times daily as needed for shortness of breath. - Anoro Ellipta by inhalation daily. - Cyclobenzaprine 10 mg by mouth three times daily. - Doxepin 75 mg by mouth at bedtime. - Gabapentin 300 mg by mouth three times daily. - Metoprolol succinate 100 mg by mouth at bedtime. - Verapamil 180 mg by mouth at bedtime. - Ambien 10 mg by mouth at bedtime. - Morphine sulfate 20 mg per 1 mL, take 0.25 to 1 mL by mouth every 2 hours as needed for pain. - Lorazepam 1 mg by mouth every 4 hours as needed for anxiety or dyspnea. 2. Followup with hospice as an outpatient. 3. Activity as tolerated. 4. Diet: Regular. Prognosis: Poor. Condition: Stable. Pending studies: None. HOSPITAL COURSE: This is a 71-year-old man with: 1. Intractable pain and brain metastases of uncertain primary origin with chronic low back pain as well. The patient had a strong desire to be discharged home and to have hospice initiated as an outpatient as he did not want to be kept in the hospital. He elected to become comfort measures only while in the emergency department and a Medical Orders for Life-Sustaining Treatment (MOLST) form was completed and signed. He had a Bajwa placed per his request. We discharged him with a Bajwa catheter per his request and oxygen for comfort as well as morphine and lorazepam. Hospice consult was placed, and they will follow with him as an outpatient. 2. Episode of turning blue. This was likely due to respiratory depression from overuse of opioids. The patient was counseled that while these medications may be necessary to relieve this pain, over use of these medications could result in respiratory depression and . All other medical problems were stable and all other home medications were continued upon discharge. LILA
== END 2017-03-17 17:30 | disposition home or self-care (01) | DRG 947 ==
LOC: M ED 17:18 → M ED INP 21:01 → M MSPAV 23:34
PROVIDERS: ADMIT Hospitalist; ATTEND Family Medicine
DX: G89.3 Neoplasm related pain (acute) (chronic) (principal); E43 Unspecified severe protein-calorie malnutrition; C79.31 Secondary malignant neoplasm of brain; G81.94 Hemiplegia, unspecified affecting left nondominant side; Z68.1 Body mass index [BMI] 19.9 or less, adult; F11.20 Opioid dependence, uncomplicated; J44.9 Chronic obstructive pulmonary disease, unspecified; G40.909 Epilepsy, unspecified, not intractable, without status epilepticus; E78.5 Hyperlipidemia, unspecified; C80.1 Malignant (primary) neoplasm, unspecified; F17.210 Nicotine dependence, cigarettes, uncomplicated; G62.9 Polyneuropathy, unspecified; I16.0 Hypertensive urgency; K59.09 Other constipation; R91.8 Other nonspecific abnormal finding of lung field; M47.817 Spondylosis without myelopathy or radiculopathy, lumbosacral region; Z51.5 Encounter for palliative care; Z79.899 Other long term (current) drug therapy; R64 Cachexia